=== PATIENT | male | born 1950 | race Caucasian/White ===

== ENCOUNTER → 2018-05-19 | Day surgery (SDC) | payer BC ==
[~2018-05-19] VITALS: Ht 180.3 cm; Wt 97.5 kg
[~2018-05-19] MED LIST: CHLORDIAZEPOXID25 MG PO; FAMOTIDINE 20 MG TAB ONE; FENTANYL CITRATE/PF 100MCG/2 ML INJ ONE; HEPARIN SOD/SOD CHLORIDE 2,000 ML ONE; HYDROCODONE/APAP 5MG-325MG TAB ONE; IOPAMIDOL 370 MG/ML 200 ML INFUS..BTL INJ ONE; LIDOCAINE HCL 2% LOCAL 20 ML VIAL ONE; LORAZEPAM INJ 2 MG/ML VIAL ONE; MIDAZOLAM HCL 2 MG/2 ML VIAL ONE; PHENYTOIN SODI100 MG PO; SIMVASTATIN40 MG PO; SODIUM CHLORIDE 0.9% 1000ML 1,000 ML ONE; SPIRIVA18 MCG INH; ULTRAM50 MG PO
[2018-05-19 11:20] VITALS: BP 136/72
[2018-05-19 11:59] VITALS: BP 149/72
--- NOTE | 2018-06-17 00:28 | Operative Report ---
DATE OF PROCEDURE: May 19, 2018 DIAGNOSES: 1. Coronary artery disease. 2. Hyperlipidemia. 3. Chronic obstructive pulmonary disease. 4. History of lung cancer. PROCEDURES: 1. Cardiac catheterization including selective coronary angiography and left ventricular angiogram. 2. Abdominal aortography. 3. Closure of left femoral artery with Angio-Seal. ANESTHESIA: Moderate sedation and local anesthetic to the left groin area. DESCRIPTION OF THE PROCEDURE: After usual prepping and draping, the left inguinal area was infiltrated with local lidocaine. Under modified Seldinger technique, a 6-Indian arterial sheath was placed in the left femoral artery. Selective coronary angiography was performed by modified [place] catheter. A 6-Indian angled pigtail catheter was utilized for recording of hemodynamics, left ventricular angiogram in the RDZ projection, and abdominal aortography. At the end of diagnostic cardiac catheterization and removal of the pigtail catheter, angiogram of the left groin area was performed in the left anterior oblique position prior to closure of the left femoral artery with Angio-Seal. FINDINGS OF CARDIAC CATHETERIZATION: The left ventricular pressure was 140. The aortic pressure was 140/68 with a mean of 110 mmHg. The left ventricular end-diastolic pressure was elevated with 16 mmHg. The left main artery showed 75% stenosis in the distal portion of the left main coronary artery extending into the left circumflex trunk, which was narrowed to about 90%. There was a tandem lesion in the left circumflex artery beyond the ostial lesion showing about 70% stenosis. The left coronary artery showed extensive calcification and there were calcified plaques in the proximal LAD amounting to about 20% stenosis. The mid and distal LAD as well as a large diagonal branch were free of any stenotic areas. The right coronary artery also showed diffuse calcification and scattered stenotic areas with 20% in the proximal portion and 30% to 40% in the mid portion. The right coronary artery was dominant vessel. The left ventricular angiogram showed normal contractility and normal wall motion with an ejection fraction of 60%. There was no mitral regurgitation noted. The abdominal aortogram showed normal renal arteries. The superior and inferior mesenteric artery were also normal. However, the inferior mesenteric artery showed tapering and there was some proximal stenotic area in the proximal and mid portion of the inferior mesenteric artery. The celiac trunk and branches appeared to be normal. There were some minor plaques in the infrarenal abdominal aorta. There was 90% stenosis involving the right internal iliac artery. Otherwise, the iliac arteries and the proximal portions of the left superficial femoral artery and profunda branch did not show any stenotic areas. IMPRESSION: 1. Severe calcific multivessel coronary artery disease with severe stenosis of the distal left main coronary artery and ostial and proximal portion of the left circumflex trunk with mild stenotic areas in the LAD and right coronary artery. 2. Normal left ventricular ejection fraction with 60%. 3. Left ventricular dysfunction with elevated left ventricular end-diastolic pressure of 16 mmHg. 4. No significant abnormalities are noted on the abdominal aortography. The findings of the cardiac catheterization were related to the patient and his in detail. It was recommended the patient should have aortocoronary bypass procedure with KUNZ to the LAD and saphenous vein graft to the left obtuse marginal branch hopefully with minimally invasive surgery since the patient has severe COPD and unlikely to quit smoking and he presently smokes about 2 packs a day of cigarettes. The procedure was well tolerated. There were no complications and there was no blood loss. The patient will also need extensive pulmonary evaluation with pulmonary function studies and pulmonary clearance prior to the aortocoronary bypass procedure. Job#: [id number]
== END | disposition home or self-care (01) ==
LOC: CATH LAB 08:52
PROVIDERS: ATTEND Internal Medicine Cardiovascular Disease
DX: I25.10 Atherosclerotic heart disease of native coronary artery without angina pectoris (principal); I70.208 Unspecified atherosclerosis of native arteries of extremities, other extremity; E78.5 Hyperlipidemia, unspecified; J44.9 Chronic obstructive pulmonary disease, unspecified; G40.909 Epilepsy, unspecified, not intractable, without status epilepticus; M54.5 Low back pain; F17.210 Nicotine dependence, cigarettes, uncomplicated; Z85.118 Personal history of other malignant neoplasm of bronchus and lung
CPT/HCPCS: 75625; 93458; 93880; J2001; J2060; J2250; J7030; Q9967

== ENCOUNTER → 2018-05-25 | Day surgery (SDC) | payer BC ==
[2018-05-23 11:27] LABS: BASOPHILS # (AUTO) 0.1 (0.0-0.1); BASOPHILS % 0.7 % (0.0-1.0); EOSINOPHILS # (AUTO) 0.4 (0.0-0.4); EOSINOPHILS % 3.3 % (0.0-6.0); HEMATOCRIT 39.5 % (38.2-49.6); HEMOGLOBIN 13.1 g/dL (14.0-18.0); LYMPHOCYTES # (AUTO) 3.3 (1.0-3.2); MEAN CORPUSCULAR HEMOGLOBIN 31.9 pg (28-32); MEAN CORPUSCULAR HGB CONC 33.2 g/dL (31-35); MEAN CORPUSCULAR VOLUME 96.1 fL (81-99); MONOCYTES # (AUTO) 1.2 (0.2-0.8); MONOCYTES % 10.7 % (4.4-11.3); NEUTROPHILS # (AUTO) 5.8 (2.1-6.9); NEUTROPHILS % 53.9 % (38.7-80.0); PLATELET COUNT 321 x10e3/uL (140-360); RED BLOOD COUNT 4.11 x10e6/uL (4.3-5.7); RED CELL DISTRIBUTION WIDTH 13.2 % (11.7-14.4)
[2018-05-23 11:45] LABS: ALANINE AMINOTRANSFERASE 25 IU/L (0-55); ALBUMIN 3.3 g/dL (3.5-5.0); ALBUMIN/GLOBULIN RATIO 0.8 (0.8-2.0); ALKALINE PHOSPHATASE 155 IU/L (40-150); BLOOD UREA NITROGEN 10 mg/dL (7-26); BUN/CREATININE RATIO 13 (6-25); CALCIUM 10.1 mg/dL (8.4-10.2); CARBON DIOXIDE 29 mmol/L (22-29); CHLORIDE 105 mmol/L (98-107); CHOL/HDL RATIO 4.7 (3.9-4.7); CHOLESTEROL 186 MD/DL (0-199); CREATININE, SERUM 0.78 mg/dL (0.72-1.25); EST GLOMERULAR FILTRATION RATE > 60 ML/MIN (60-); GLUCOSE 95 mg/dL (74-118); HDL CHOLESTEROL 40 MG/DL (40-60); LDL CHOLESTEROL 109 MG/DL (60-130); SODIUM 142 mmol/L (136-145); TRIGLYCERIDES 186 MG/DL (0-149)
[2018-05-23 11:51] LABS: PHENYTOIN (DILANTIN) 8.69 ug/mL (10-20)
--- NOTE | 2018-05-23 20:52 | Diagnostic Imaging Report ---
PROCEDURE: Frontal and lateral views of the chest. COMPARISON: [facility], , CHEST 2 VIEWS, 08/03/2010, 16:29. INDICATIONS: PREOPERATIVE CHEST XRAY FOR CAROTID ANGIOGRAM FINDINGS: Lines/tubes: None. Lungs: Hyperinflated lungs, with flattening of the hemidiaphragms and increased retrosternal air, consistent with COPD. Sutures are again noted projecting over the right apex. No consolidation or pulmonary edema. Pleura: There is no pleural effusion or pneumothorax. Heart and mediastinum: The heart and the mediastinum are normal. Bones: No acute bony abnormality. Multilevel degenerative disc changes in the thoracic spine. IMPRESSION: 1. COPD changes, without acute cardiopulmonary disease. 2. Stable postoperative changes in the right lung. Luis Manuel Salomon M.D. Dictated by: Luis Manuel Salomon M.D. on 05/23/2018 at 12:33 Electronically approved by: Luis Manuel Salomon M.D. on 05/23/2018 at 12:33
[2018-05-25] VITALS (8 sets, daily range): BP systolic 137–174; BP diastolic 69–97
[~2018-05-25] VITALS: Ht 170.2 cm; Wt 97.5 kg
[~2018-05-25] MED LIST changes: -HYDROCODONE/APAP 5MG-325MG TAB ONE
--- NOTE | 2018-05-27 17:21 | Operative Report ---
DATE OF PROCEDURE: May 25, 2018 DIAGNOSES: 1. Transient ischemic attacks. 2. Severe stenosis of the left internal carotid artery by carotid ultrasound study. 3. Coronary artery disease. 4. Chronic obstructive pulmonary disease. PROCEDURES 1. Aortic arch study. 2. Selective left carotid angiogram. 3. Closure of right femoral artery with Angio-Seal VIP. ANESTHESIA: Moderate sedation and local anesthetic. DESCRIPTION OF PROCEDURE: After usual prepping and draping, the right inguinal area was infiltrated with local lidocaine. A 6-Greenlandic arterial sheath was then placed in the right femoral artery under modified Seldinger technique. A 6-Greenlandic angled pigtail catheter was utilized for aortic arch study. The catheter was placed in the aortic arch area and the study was performed in 25-degree LAD projection. Following this angiogram, a 5-Greenlandic H1 angiographic catheter was utilized for cannulation of the left common carotid artery. The catheter was advanced up to the bifurcation using a 0.035 Glidewire. Selective carotid angiogram was then performed in the AP, lateral, and oblique positions. After completion of the carotid angiogram and removal of the catheter, angiogram of the right groin area in the RDZ projection was performed prior to closure of the right femoral artery with Angio-Seal. FINDINGS OF ANGIOGRAPHY: The aortic arch vessel showing a normal takeoff with normal appearance of the right innominate and right subclavian artery, and also the left subclavian artery appeared to be normal. The right vertebral artery was large and dominant while the left vertebral artery was quite small. The right common carotid artery showed some plaque formation causing about 20% stenosis, also about 20% stenosis noted in the proximal right internal carotid artery. The left common carotid artery showed some minor plaque formation. The proximal left internal carotid artery showed aneurysmatic ectasia with some minor plaque formation. The internal carotid arteries then appeared to be of normal size about 1.5 cm above this aneurysmatic dilatation. There was a segmental eccentric 50% to 60% stenosis. The internal carotid artery was then quite tortuous and showing about 20% focal stenosis. The left anterior cerebral artery and its branches and the middle cerebral artery and its branches showed no stenosis. Also, the internal carotid artery following up in the cavernous sinus showed no stenosis. IMPRESSION: 1. 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 2. 20% stenosis in the right common carotid artery and right internal carotid artery. The findings were discussed with patient and the patient's . RECOMMENDATION: To continue antiplatelet medication as well as the statin for lowering cholesterol, and followup with carotid ultrasound study in 6 months to further investigate, and close observation of the left proximal internal carotid artery. Job#: [id number]
== END | disposition home or self-care (01) ==
LOC: CATH LAB 09:21
PROVIDERS: ATTEND Internal Medicine Cardiovascular Disease
DX: I65.22 Occlusion and stenosis of left carotid artery (principal); I25.10 Atherosclerotic heart disease of native coronary artery without angina pectoris; J44.9 Chronic obstructive pulmonary disease, unspecified; R56.9 Unspecified convulsions
CPT/HCPCS: 36224; 36415; 71046; 80053; 80061; 80185; 85025; J2001; J2060; J2250; J7030; Q9967; 36221; 36222

== ENCOUNTER 2018-05-26 14:56 | Emergency (ER) | payer BC ==
[~2018-05-26] VITALS: Ht 180.3 cm; Wt 97.5 kg
[2018-05-26 15:32] LABS: BASOPHILS # (AUTO) 0.1 (0.0-0.1); BASOPHILS % 0.5 % (0.0-1.0); EOSINOPHILS # (AUTO) 0.2 (0.0-0.4); EOSINOPHILS % 1.3 % (0.0-6.0); HEMATOCRIT 36.2 % (38.2-49.6); HEMOGLOBIN 12.5 g/dL (14.0-18.0); LYMPHOCYTES # (AUTO) 3.6 (1.0-3.2); LYMPHOCYTES % 24.1 % (18.0-39.1); MEAN CORPUSCULAR HEMOGLOBIN 32.1 pg (28-32); MEAN CORPUSCULAR HGB CONC 34.5 g/dL (31-35); MEAN CORPUSCULAR VOLUME 93.1 fL (81-99); MONOCYTES # (AUTO) 1.4 (0.2-0.8); MONOCYTES % 9.3 % (4.4-11.3); NEUTROPHILS # (AUTO) 9.6 (2.1-6.9); NEUTROPHILS % 64.2 % (38.7-80.0); PLATELET COUNT 339 x10e3/uL (140-360); RED BLOOD COUNT 3.89 x10e6/uL (4.3-5.7); RED CELL DISTRIBUTION WIDTH 13.1 % (11.7-14.4)
[2018-05-26 15:52] LABS: BILIRUBIN,URINE NEGATIVE (NEGATIVE); CLARITY,URINE CLEAR (CLEAR); COLOR,URINE YELLOW (YELLOW); KETONES,URINE NEGATIVE (NEGATIVE); LEUKOCYTE ESTERASE ,URINE NEGATIVE (NEGATIVE); NITRITE,URINE NEGATIVE (NEGATIVE); PROTEIN,URINE DIPSTICK NEGATIVE (NEGATIVE); URINE UROBILINOGEN 0.2 mg/dL (0.2 - 1)
[2018-05-26 15:55] LABS: ALANINE AMINOTRANSFERASE 24 IU/L (0-55); ALBUMIN 3.3 g/dL (3.5-5.0); ALBUMIN/GLOBULIN RATIO 0.9 (0.8-2.0); ALKALINE PHOSPHATASE 139 IU/L (40-150); ANION GAP 13.6 mmol/L (8-16); BLOOD UREA NITROGEN 7 mg/dL (7-26); BUN/CREATININE RATIO 10 (6-25); CALCIUM 9.3 mg/dL (8.4-10.2); CARBON DIOXIDE 25 mmol/L (22-29); CHLORIDE 103 mmol/L (98-107); CREATININE, SERUM 0.68 mg/dL (0.72-1.25); EST GLOMERULAR FILTRATION RATE > 60 ML/MIN (60-); GLUCOSE 126 mg/dL (74-118); POTASSIUM 3.6 mmol/L (3.5-5.1); SODIUM 138 mmol/L (136-145)
[2018-05-26 16:05] LABS: MUCUS,URINE FEW (RARE)
[2018-05-26 16:08] LABS: CREATINE KINASE MB 0.9 ng/mL (0-5.0)
[2018-05-26] MEDS ORDERED: ONDANSETRON HCL INJ 2 MG/ML VIAL IV NR (20:00)
[2018-05-26] MEDS ORDERED: SODIUM CHLORIDE 0.9% 1000ML 500 ML IV ONE (20:15)
[2018-05-26] MEDS ORDERED: MORPHINE SULFATE INJ 4 MG/ML INJ IV NR (20:15)
[2018-05-26] MEDS ORDERED: HYDROMORPHONE 1MG/1ML INJ IV NR (21:15)
--- NOTE | 2018-05-26 22:06 | Diagnostic Imaging Report ---
EXAM: CT CHEST, ABDOMEN, PELVIS with IV CONTRAST INDICATION: Abdominal pain, nausea and vomiting, pain radiates to chest COMPARISON: CT of the chest September 08, 2009 TECHNIQUE: The chest, abdomen and pelvis were scanned using a multidetector helical scanner. Coronal and sagittal reformations were obtained. Routine protocol performed. IV Contrast: 100 cc Isovue-370 Oral Contrast: Water CTDIvol has been reviewed. It is below the limits set by the Radiation Protocol Committee (RPC). FINDINGS: LUNGS AND AIRWAYS: Moderate centrilobular emphysema with an upper lung predominance. Mild scarring in the right upper lung. Irregular 2 cm nodule in the left upper lung posteriorly. Anteriorly in the left upper lung is an irregular 1.1 cm nodule. PLEURA: No effusions or pneumothorax HEART, MEDIASTINUM, VESSELS: The heart is within normal size limits. No abnormal pericardial effusion. No thoracic aortic aneurysm. Enlarged aortic pulmonary window lymph node up to 3.1 x 4.8 cm. Enlarged left hilar lymph node up to 2.3 cm. LIVER: No masses BILIARY: The gallbladder is unremarkable. No ductal dilation. SPLEEN: No masses PANCREAS: No masses ADRENALS: Right adrenal gland nodule measuring 3.6 cm. Left adrenal gland nodule measuring 4 cm. KIDNEYS: Symmetric perfusion. No enhancing masses. No hydronephrosis. Nonspecific bilateral perinephric fat stranding. GI TRACT: No distention, wall thickening or evidence of obstruction. Small sliding hiatal hernia. Normal appendix. VESSELS: Advanced atherosclerotic changes of the abdominal aorta without aneurysm. PERITONEUM/RETROPERITONEUM: No free air or fluid LYMPH NODES: No lymphadenopathy REPRODUCTIVE ORGANS: Unremarkable BLADDER: Unremarkable SOFT TISSUES: Unremarkable BONES: No suspicious bone lesions. IMPRESSION: The 2 cm and 1.1 cm irregular nodules in the left upper lung are suspicious for primary lung malignancy. Enlarged aortic-pulmonary window and left hilar lymph nodes and bilateral adrenal gland masses are likely metastatic. Signed by: Dr. Luz Maria De La Rosa M.D. on 05/26/2018 10:03 PM
[2018-05-26 23:07] VITALS: BP 154/73
[2018-05-27] MEDS ORDERED: IOPAMIDOL 370 MG/ML 200 ML INFUS..BTL INJ ONE (01:13)
[2018-05-27] MEDS ORDERED: SODIUM CHLORIDE 0.9% 50ML 50 ML ONE (01:13)
== END 2018-05-26 23:18 | disposition home or self-care (01) ==
LOC: ER 14:56
DX: R10.84 Generalized abdominal pain (principal); R11.2 Nausea with vomiting, unspecified; K52.9 Noninfective gastroenteritis and colitis, unspecified; I10 Essential (primary) hypertension; I51.9 Heart disease, unspecified; Z95.1 Presence of aortocoronary bypass graft
CPT/HCPCS: 36415; 71260; 74177; 80053; 81001; 82550; 82553; 83690; 84484; 85025; 93005; 99284; J1170; J2270; J2405; J7030

== ENCOUNTER → 2018-05-26 | Outpatient (CLI) | payer BC ==
[~2018-05-26] MED LIST changes: -FAMOTIDINE 20 MG TAB ONE; -FENTANYL CITRATE/PF 100MCG/2 ML INJ ONE; -HEPARIN SOD/SOD CHLORIDE 2,000 ML ONE; -IOPAMIDOL 370 MG/ML 200 ML INFUS..BTL INJ ONE; -LIDOCAINE HCL 2% LOCAL 20 ML VIAL ONE; -LORAZEPAM INJ 2 MG/ML VIAL ONE; -MIDAZOLAM HCL 2 MG/2 ML VIAL ONE; -SODIUM CHLORIDE 0.9% 1000ML 1,000 ML ONE
== END ==
LOC: RESP 13:06
PROVIDERS: ATTEND Internal Medicine Cardiovascular Disease
DX: J44.1 Chronic obstructive pulmonary disease with (acute) exacerbation (principal)
CPT/HCPCS: 94060; 94727; 94729